=== PATIENT | male | born 1970 | race Caucasian/White ===

== ENCOUNTER 2018-04-27 17:36 | Emergency (ER) | payer OTHER ==
[~2018-04-27] VITALS: Ht 172.7 cm; Wt 74.8 kg
[~2018-04-27 17:36] MED LIST: CHLORPROMAZINE25 M1 PO; CIPRO500 MG PO; CIPROFLOXACIN500 M1 PO; COLACE100 MG PO; FLAGYL500 MG PO; HYDROCODONE-AP1 EAC6 PO; LISINOPRIL10 MG PO; MIRALAX17 GM PO; NICOTINE TRANSD21 M1 TOP; NOHOMEMEDICATIONS; NORCO 5-325 TA1 EACH PO; PERCOCET; PERCOCET 5-3251 EACH PO; PHENERGAN; PHENERGAN 25 MG25 MG PO; VICODIN 5-5001 EACH PO; XANAX 0.5 MG0.5 MG PO
[2018-04-27] MEDS ORDERED: NOHOMEMEDICATIONS ×2 (17:47)
[2018-04-27 18:17] LABS: ABSOLUTE BASOPHILS 0.1 thou/uL (0.0-0.2); ABSOLUTE EOSINOPHILS 0.2 thou/uL (0.0-0.7); ABSOLUTE LYMPHOCYTES 1.6 thou/uL (0.8-5.3); ABSOLUTE MONOCYTES 1.2 thou/uL (0.0-1.2); BASOPHILS 0.5 %; EOSINOPHILS 1.9 %; HEMATOCRIT 45.7 % (42.0-52.0); HEMOGLOBIN 15.5 gm/dL (14.0-18.0); LYMPHOCYTES 14.1 %; MCHC 33.8 g/dL (28.0-37.0); MCV 97.6 fL (80.0-100.0); MONOCYTES 11.1 %; MPV 8.5 fl. (7.2-11.1); NUCLEATED RBCS 0 /100WBC; PLATELET COUNT* 226 thou/uL (150-400); POLYS 72.4 %; RBC 4.68 mil/uL (4.50-6.00); RDW-CV 14.2 % (10.5-14.5); WBC 11.1 thou/uL (4.0-11.0)
[2018-04-27 18:19] LABS: CALCIUM 8.8 mg/dL (8.5-10.1); CREATININE 0.9 mg/dL (0.6-1.3)
[2018-04-27 18:24] LABS: ALBUMIN 4.2 g/dL (3.4-5.0); TOTAL BILIRUBIN 0.3 mg/dL (<0.1-1.0); TOTAL PROTEIN 7.6 g/dL (6.4-8.2)
[2018-04-27 18:31] LABS: URINE BILIRUBIN NEGATIVE (Negative); URINE BLOOD NEGATIVE (Negative); URINE CLARITY CLEAR; URINE COLOR YELLOW; URINE GLUCOSE-RANDOM NEGATIVE (Negative); URINE KETONES NEGATIVE (Negative); URINE LEUKOCYTES NEGATIVE (Negative); URINE NITRITE NEGATIVE (Negative); URINE PROTEIN NEGATIVE (Negative); URINE UROBILINOGEN 0.2 E.U./dl (0.2-1.0)
[2018-04-27] MEDS ORDERED: ZOFRAN ODT4 MG PO ×2 (19:59)
[2018-04-27] MEDS ORDERED: CIPRO500 MG PO (19:59)
[2018-04-27] MEDS ORDERED: FLAGYL500 MG PO ×2 (19:59)
[2018-04-27 20:08] VITALS: BP 179/90
[2018-04-28] MEDS ORDERED: HYDROCODON-ACE1 EAC7 PO (13:07)
[2018-04-28] MEDS ORDERED: FLAGYL500 MG PO (13:07)
[2018-04-28] MEDS ORDERED: CIPROFLOXACIN500 M1 PO (13:07)
[2018-04-28] MEDS ORDERED: PHENERGAN 25 MG25 M1 PO (13:07)
== END 2018-04-27 20:08 | disposition home or self-care (01) ==
LOC: M.ERS 17:36
PROVIDERS: Physician Assistant Surgical
DX: K57.92 Diverticulitis of intestine, part unspecified, without perforation or abscess without bleeding (principal); F17.210 Nicotine dependence, cigarettes, uncomplicated

== ENCOUNTER 2018-04-28 10:47 | Emergency (ER) | payer OTHER ==
[~2018-04-28] VITALS: Ht 172.7 cm; Wt 74.8 kg
[~2018-04-28 10:47] MED LIST changes: +ZOFRAN ODT4 MG PO
[2018-04-28 11:17] LABS: HEMATOCRIT 46.7 % (42.0-52.0); HEMOGLOBIN 16.1 gm/dL (14.0-18.0); MCH 33.1 pg (26.0-34.0); MCHC 34.4 g/dL (28.0-37.0); MCV 96.2 fL (80.0-100.0); MPV 8.5 fl. (7.2-11.1); NUCLEATED RBCS 0 /100WBC; PLATELET COUNT* 223 thou/uL (150-400); RBC 4.86 mil/uL (4.50-6.00); RDW-CV 13.9 % (10.5-14.5); WBC 12.5 thou/uL (4.0-11.0)
[2018-04-28 11:27] LABS: APTT 29.2 Seconds (25.0-31.3)
[2018-04-28 11:28] LABS: CALCIUM 8.9 mg/dL (8.5-10.1); CREATININE 0.9 mg/dL (0.6-1.3); POTASSIUM 3.8 mmol/L (3.5-5.1)
[2018-04-28 11:34] LABS: ALBUMIN 4.2 g/dL (3.4-5.0); TOTAL BILIRUBIN 0.7 mg/dL (<0.1-1.0); TOTAL PROTEIN 7.8 g/dL (6.4-8.2)
[2018-04-28 11:44] LABS: ABSOLUTE EOSINOPHILS 0.1 thou/uL (0.0-0.7); ABSOLUTE LYMPHOCYTES 1.6 thou/uL (0.8-5.3); ABSOLUTE MONOCYTES 0.8 thou/uL (0.0-1.2); PLATELET ESTIMATE ADEQUATE
[2018-04-28 11:45] LABS: ANISOCYTOSIS 1+; POIKILOCYTOSIS 1+
[2018-04-28] MEDS ORDERED: HYDROCODON-ACE1 EAC7 PO (13:07)
[2018-04-28] MEDS ORDERED: CIPROFLOXACIN500 M1 PO (13:07)
[2018-04-28] MEDS ORDERED: PHENERGAN 25 MG25 M1 PO (13:07)
[2018-04-28] MEDS ORDERED: FLAGYL500 MG PO (13:07)
[2018-04-28 13:21] VITALS: BP 144/86
[2018-04-28 13:24] LABS: URINE BILIRUBIN NEGATIVE (Negative); URINE BLOOD NEGATIVE (Negative); URINE CLARITY CLEAR; URINE COLOR YELLOW; URINE GLUCOSE-RANDOM NEGATIVE (Negative); URINE KETONES NEGATIVE (Negative); URINE LEUKOCYTES-REFLEX NEGATIVE (Negative); URINE NITRITE-REFLEX NEGATIVE (Negative); URINE PROTEIN NEGATIVE (Negative); URINE SPECIFIC GRAVITY 1.015 (1.005-1.030); URINE UROBILINOGEN 0.2 E.U./dl (0.2-1.0)
== END 2018-04-28 13:22 | disposition home or self-care (01) ==
LOC: M.ERS 10:47
PROVIDERS: Personal Emergency Response Attendant
DX: K57.92 Diverticulitis of intestine, part unspecified, without perforation or abscess without bleeding (principal); F17.210 Nicotine dependence, cigarettes, uncomplicated